=== PATIENT | female | born 1955 | race Caucasian/White ===

== ENCOUNTER 2019-03-16 14:28 | Inpatient (IN) | payer OTHER, MEDICAID ==
[~2019-03-16] VITALS: Ht 121.9 cm; Wt 83.5 kg
[~2019-03-16 14:28] MED LIST: BACTRIM DS TAB1 EACH PO; BENZTROPINE MES1 MG PO; CHLORPROMAZINE100 MG PO; HYDROCODONE-AP1 EAC6 PO; JANUMET 50-5001 EACH PO; LEVOTHYROXINE0.05 MG PO; LEXAPRO20 MG PO; LOPRESSOR50 PO; NASONEX17 GM; NEURONTIN 300300 M1 PO; NEXIUM40 MG PO; PHENAZOPYRIDIN200 M2 PO; PRAVACHOL40 MG PO; PRAZOSIN HCL1 MG PO; PRINIVIL20 MG PO; PROCTOFOAM-HC 110 GM RC; REGLAN 10 MG TA10 MG PO; RISPERDAL 3 MG T3 MG PO; ROBAXIN500 MG PO; TRAMADOL 50 MG50 MG PO; TRICOR145 MG PO; VESICARE 5 MG TA5 MG PO; ZOFRAN4 MG PO
[2019-03-16 14:34] VITALS: BP 163/93
[2019-03-16] MEDS ORDERED: BUSPIRONE HCL10 MG PO (14:39)
[2019-03-16] MEDS ORDERED: JANUVIA 50 MG T50 M1 PO (14:41)
[2019-03-16] MEDS ORDERED: SYNTHROID75 MCG PO (14:41)
[2019-03-16] MEDS ORDERED: LISINOPRIL10 MG PO (14:42)
[2019-03-16] MEDS ORDERED: PROTONIX40 M1 PO (14:42)
[2019-03-16] MEDS ORDERED: CLARITIN10 MG PO (14:42)
[2019-03-16] MEDS ORDERED: ARIMIDEX1 MG PO (14:45)
[2019-03-16] MEDS ORDERED: FENOFIBRIC ACID45 MG PO (14:45)
[2019-03-16 14:51] LABS: ABSOLUTE BASOPHILS 0.1 thou/uL (0.0-0.2); ABSOLUTE EOSINOPHILS 0.1 thou/uL (0.0-0.7); ABSOLUTE LYMPHOCYTES 1.4 thou/uL (0.8-5.3); ABSOLUTE MONOCYTES 0.4 thou/uL (0.0-1.2); ABSOLUTE NEUTROPHILS 3.2 thou/uL (1.6-8.1); BASOPHILS 1.2 %; EOSINOPHILS 2.3 %; HEMATOCRIT 37.8 % (37.0-47.0); HEMOGLOBIN 12.9 gm/dL (12.0-15.0); LYMPHOCYTES 26.8 %; MCHC 34.2 g/dL (28.0-37.0); MCV 87.7 fL (80.0-100.0); MONOCYTES 7.3 %; MPV 8.1 fl. (7.2-11.1); NUCLEATED RBCS 0 /100WBC; PLATELET COUNT* 217 thou/uL (150-400); POLYS 62.4 %; RBC 4.31 mil/uL (4.20-5.00); RDW-CV 12.3 % (10.5-14.5); WBC 5.1 thou/uL (4.0-11.0)
[2019-03-16 15:03] LABS: ANION GAP 9 mmol/L (7-16); BUN 13 mg/dL (7-18); CALCIUM 8.3 mg/dL (8.5-10.1); CHLORIDE 104 mmol/L (98-107); CO2 26 mmol/L (21-32); CREATININE 1.3 mg/dL (0.6-1.3); GLUCOSE 155 mg/dL (70-99); SODIUM 139 mmol/L (136-145)
[2019-03-16 15:04] LABS: APTT 23.8 Seconds (25.0-31.3); PROTIME 10.5 Seconds (9.20-11.50)
[2019-03-16 15:14] LABS: ALBUMIN 3.6 g/dL (3.4-5.0); ALKALINE PHOSPHATASE 42 U/L (46-116); NT-PRO BRAIN NAT PEPTIDE 103 pg/mL (<300); SGOT 46 U/L (15-37); SGPT 118 U/L (30-65); TOTAL BILIRUBIN 0.3 mg/dL (<0.1-1.0); TOTAL PROTEIN 6.8 g/dL (6.4-8.2); TROPONIN-I LEVEL <0.06 ng/mL (<0.06)
[2019-03-16 16:22] VITALS: BP 151/75
[2019-03-16 16:50] VITALS: BP 168/88
[2019-03-16 19:50] VITALS: BP 149/89
[2019-03-17 00:20] VITALS: BP 141/76
[2019-03-17 04:23] VITALS: BP 123/77
[2019-03-17 07:23] LABS: CHOLESTEROL 138 mg/dL (<200); HDL CHOLESTEROL 25 mg/dL (>40); LDL CHOLESTEROL 65 mg/dL (<100); SERUM ASSESSMENT Clear; TC:HDL 5.5 Ratio (Not establshd); TRIGLYCERIDE 243 mg/dL (<150); VLDL 49 mg/dL (<40)
[2019-03-17 08:00] VITALS: BP 152/90
[2019-03-17] MEDS ORDERED: VITAMIN D1000 UNIT PO (10:12)
[2019-03-17] MEDS ORDERED: CHLORPROMAZINE100 MG PO (10:12)
[2019-03-17 10:29] VITALS: BP 152/90
--- NOTE | 2019-03-17 11:15 | EKG ---
[place] [address] ELECTROCARDIOGRAM REPORT Name: JOSSELINE COELHO Room: [address] ADM IN .R.#: [id number] Admission: 03/16/19 Attend Phys: Sohail Garcia MD Discharge: Date of : 59 Report #: [id number] THIS REPORT FOR: //name// [facility] ED Test Date: 2019-03-16 Test Time: 14:37:08 Pat Name: JOSSELINE COELHO Department: Room: [facility] Gender: F Digital [employer] In[employer]: : 1955 Requested By: Sam Leone Order Number: [id number] MD: Antwan Crook Measurements Intervals [place] Rate: 79 P: 18 MI: 158 QRS: 23 QRSD: 90 T: 35 QT: 413 QTc: 474 Interpretive Statements Sinus rhythm Low voltage, precordial leads Borderline T abnormalities, anterior leads Compared to ECG 06/27/2014 13:42:51 No significant changes Electronically Signed On 03-17-2019 11:15:34 CDT by Antwan Crook [email or web address] <ELECTRONICALLY SIGNED> By: Libby Crook MD, [facility] 03/17/19 1115 [id number] Libby Crook MD, [facility] /EPI
[2019-03-18 02:10] LABS: HEPATITIS B SURFACE AG Negative (Negative)
== END 2019-03-17 11:20 | disposition home or self-care (01) | DRG 304 ==
LOC: M.ERS 14:28 → M.TBA-ER 15:45 → M.2W 16:33
PROVIDERS: Family Medicine; ADMIT Internal Medicine
DX: I16.0 Hypertensive urgency (principal); G92 Toxic encephalopathy; Z68.43 Body mass index [BMI] 50.0-59.9, adult; E66.9 Obesity, unspecified; N18.2 Chronic kidney disease, stage 2 (mild); T50.905A Adverse effect of unspecified drugs, medicaments and biological substances, initial encounter; I12.9 Hypertensive chronic kidney disease with stage 1 through stage 4 chronic kidney disease, or unspecified chronic kidney disease; R74.0 Nonspecific elevation of levels of transaminase and lactic acid dehydrogenase [LDH]; F20.9 Schizophrenia, unspecified; F41.1 Generalized anxiety disorder; F31.9 Bipolar disorder, unspecified; F17.210 Nicotine dependence, cigarettes, uncomplicated; M19.90 Unspecified osteoarthritis, unspecified site; Z90.710 Acquired absence of both cervix and uterus; Z88.5 Allergy status to narcotic agent; Z88.1 Allergy status to other antibiotic agents; Y92.89 Other specified places as the place of occurrence of the external cause

== ENCOUNTER 2021-07-01 15:29 | Emergency (ER) | payer MEDICAID ==
[~2021-07-01] VITALS: Ht 152.4 cm; Wt 77.6 kg
[~2021-07-01 15:29] MED LIST changes: +ARIMIDEX1 MG PO; +BUSPIRONE HCL10 MG PO; +CLARITIN10 MG PO; +FENOFIBRIC ACID45 MG PO; +JANUVIA 50 MG T50 M1 PO; +LISINOPRIL10 MG PO; +PROTONIX40 M1 PO; +SYNTHROID75 MCG PO; +VITAMIN D1000 UNIT PO
[2021-07-01] MEDS ORDERED: HYDROCODON-ACE1 EAC7 PO (17:52)
[2021-07-01 20:15] VITALS: BP 167/92
== END 2021-07-01 20:16 | disposition home or self-care (01) ==
LOC: M.ERS 15:29
DX: S92.321A Displaced fracture of second metatarsal bone, right foot, initial encounter for closed fracture (principal); S92.331A Displaced fracture of third metatarsal bone, right foot, initial encounter for closed fracture; M19.90 Unspecified osteoarthritis, unspecified site; F31.9 Bipolar disorder, unspecified; I10 Essential (primary) hypertension; E11.9 Type 2 diabetes mellitus without complications; F41.9 Anxiety disorder, unspecified; F20.9 Schizophrenia, unspecified; E66.9 Obesity, unspecified; F17.210 Nicotine dependence, cigarettes, uncomplicated; Z90.711 Acquired absence of uterus with remaining cervical stump; Z68.33 Body mass index [BMI] 33.0-33.9, adult; Z79.899 Other long term (current) drug therapy; Z88.5 Allergy status to narcotic agent; Z88.1 Allergy status to other antibiotic agents; X50.1XXA Overexertion from prolonged static or awkward postures, initial encounter; Y93.89 Activity, other specified; Y92.89 Other specified places as the place of occurrence of the external cause; Y99.8 Other external cause status

== ENCOUNTER → 2021-07-15 | Outpatient (CLI) | payer MEDICAID ==
[~2021-07-15] MED LIST changes: +HYDROCODON-ACE1 EAC7 PO
== END ==
LOC: M.LAB 14:17
PROVIDERS: ATTEND Podiatrist Foot & Ankle Surgery
DX: Z01.812 Encounter for preprocedural laboratory examination (principal); Z20.822 Contact with and (suspected) exposure to COVID-19